=== PATIENT | male | born 1975 | race Caucasian/White ===

== ENCOUNTER → 2016-09-16 | Outpatient (REF) | payer OTHER ==
[2016-09-16 15:32] LABS: IMMMOTILE SPERM CENTRIFUGED ABSENT (ABSENT); IMMOTILE SPERM ABSENT (ABSENT); MOTILE SPERM ABSENT (ABSENT); MOTILE SPERM CENTRIFUGED ABSENT (ABSENT)
== END ==
LOC: M LAB REF 13:44
PROVIDERS: ATTEND Physician Assistant
DX: Z31.41 Encounter for fertility testing (principal)

== ENCOUNTER → 2016-10-13 | Outpatient (CLI) | payer OTHER ==
[~2016-10-13] MED LIST: ISOVUE-370 76% 100ML VIAL (Q9967) As Ordered ONE
--- NOTE | 2016-10-13 16:24 | REP ---
Clinical: Pulmonary nodule. Comparison: Abdominal CT dated 09/24/2016. Findings: A 9 mm noncalcified nodules identified in the anterobasilar left lower lobe unchanged from prior examination. The bilateral lung rodriguez are otherwise well aerated, symmetric and clear. No further consolidation, nodule or mass lesion is appreciated. No pleural effusion/reaction or pneumothorax. Tracheobronchial tree is patent. No adenopathy. Mediastinum demonstrates normal thoracic aorta and heart/pericardium. Surrounding musculoskeletal structures are intact. Upper abdomen demonstrates normal bilateral adrenal glands. Impression: Solitary 9 mm noncalcified nodule in the left lower lobe. No further acute mediastinal or pleuroparenchymal process is appreciated. Follow-up may include PET-CT and/or 6-9 month reevaluation. Signed by Cortez Corral MD 10/13/2016 04:15 P
== END ==
LOC: M RAD 15:33
PROVIDERS: ATTEND Physician Assistant
DX: R91.1 Solitary pulmonary nodule (principal)